=== PATIENT | male | born 1995 | race Caucasian/White ===

== ENCOUNTER 2022-05-15 15:50 | Emergency (ER) | payer OTHER, SELFPAY ==
[2022-05-15 15:51] VITALS: BP 149/103; PULSE 106; RESP 99; TEMP 36.6; O2SAT 100; BMI 26.2
--- NOTE | 2022-05-15 16:09 | EX.ED.UPPERE ---
HPI History of Present Illness Chief Complaint: Laceration Detail of Chief Complaint: Laceration radial side right index finger over the middle phalanx Informant: patient Occured/Mechanism Comment: Cut on a piece of glass Onset/Context/Timing Onset: Hours Context: Sudden Onset Timing: Continuous Quality of Pain: - (No pain presently) Current Severity: Gone Maximum Severity: Mild Worsened by: Initial injury Relieved by: Nothing Associated Symptoms Associated Symptoms: Negative for Parasthesia, Weakness or Loss of Funtion Narrative Narrative: Patient is a 27-year-old [id number]-ypsy-xpuodeko male presents with injury to his right index finger. He denies paresthesia, anesthesia medics. He denies loss of function. Tetanus Immunization: 5-10 years Prior similar symptoms: No Recent Illness/Hospitalization: No PFSH PFSH Medical History (Updated 05/15/22 @ 16:[address] J Luis Miller MD) Shingles Medical History no medical history no medical history Home Medications NK 05/15/22 [History Last Taken Unknown] Allergy/AdvReac Type Severity Reaction Status Date / Time No Known Allergies Allergy Verified 05/15/22 15:55 Surgical History no surgical history no surgical history Social History (Updated 05/15/22 @ 16:[address] J Luis Miller MD) household members: spouse Smoking Status: Never smoker substance use type: does not use ROS ROS ED Constitutional Constitutional ED: Denies chills or fever(s) Integumentary Reports other Details: Laceration ; Denies abscess, Abrasions or rash Neurologic Neurologic: Denies paresthesias or weakness Hematologic/Lymphatic Hematologic/Lymphatic: Denies easy bleeding, easy bruising or lymphadenopathy EXAM Physical Exam Const Vital Signs: 05/15/22 15:51 Temperature 97.9 F Temperature Source Temporal Pulse Rate 106 H Respiratory Rate 99 H Blood Pressure 149/103 H Blood Pressure Mean 118 Pulse Ox 100 Oxygen Delivery Method Room Air Positive well nourished and well developed General Appearance ED: well developed and NAD HEENT Reports moist mucous membranes normocephalic and atraumatic Eyes PERRL and EOMs intact bilaterally Neck full ROM and supple Resp normal respiratory effort and clear to auscultation bilaterally Cardio regular rate, regular rhythm and no murmurs Extremity Negative for normal to inspection Extremity Narrative: There is a laceration between the DIP and PIP joint radial side of the right index finger. The extensor indices tendon is functionally intact. The flexor digitorum superficialis and flexor digitorum profundus are intact. Cap refill is normal. Two-point discrimination is normal. There is no subungual hematoma noted. Neuro oriented x3, CN's II-XII intact bilaterally, no focal motor deficits and no sensory deficits noted Psych mental status grossly normal Skin General Skin Exam: Negative for petechiae Lesions: no lesions Rashes: no rashes Trauma: laceration; Negative for no lacerations or abrasions MDM MDM MDM Narrative Medical decision making narrative: Patient has a gaping laceration which will require repair. Please read procedure note Procedures Other Procedures Procedure(s): Laceration repair: Patient was prepped a sterile manner. The wound was anesthetized with 1% lidocaine by local infiltration. The wound was irrigated with 150 cc of normal saline. Using 5-0 Ethilon 5 simple interrupted sutures were placed to close the 2.6 cm laceration. Discharge Plan Triage Chief Complaint: Laceration ED Provider: J Luis Miller Dx/Rx/DC Orders Clinical Impression: Finger laceration Instructions: ED Laceration, Hand: All Closures Prescriptions: No Action NK Primary Care Provider: NOT,DEFINED Referrals: Ramandeep Madrid MD [Med Staff - Active Staff] - 10 Day for suture removal NOT,DEFINED [Primary Care Provider] - Activity Restrictions/Additional Instructions: 1. Keep wound clean and dry for the next 48 hours 2. Clean wound with peroxide on a Q-tip then apply bacitracin ointment. Perform this 3 times a day. 3. There is any concern for infection return to the emergency department Disposition Disposition: Home, Self Care
[2022-05-15] MEDS: Lidocaine 1% (20 ml mdv) 20 ML Vial INFILT (16:20)
== END 2022-05-15 16:50 | disposition home or self-care (01) ==
LOC: ED 16:42
PROVIDERS: Emergency Provider Emergency Medicine; PCP Internal Medicine; Visit Provider Emergency Medicine
DX: S61.210A Laceration without foreign body of right index finger without damage to nail, initial encounter (principal); W25.XXXA Contact with sharp glass, initial encounter
CPT/HCPCS: 12002; 99283